=== PATIENT | female | born 1950 | race Caucasian/White ===

== ENCOUNTER 2017-06-24 13:59 | Emergency (ER) | payer BC, OTHER ==
[~2017-06-24] VITALS: Ht 160 cm; Wt 86.2 kg
[2017-06-24 14:00] VITALS: BP_SYST 153
[2017-06-24 16:34] VITALS: BP_SYST 147
== END 2017-06-24 16:34 | disposition home or self-care (01) ==
LOC: SED 13:59
DX: S00.03XA Contusion of scalp, initial encounter (principal); M54.2 Cervicalgia; M54.9 Dorsalgia, unspecified; I10 Essential (primary) hypertension; W01.0XXA Fall on same level from slipping, tripping and stumbling without subsequent striking against object, initial encounter; Y93.89 Activity, other specified; Y92.89 Other specified places as the place of occurrence of the external cause; Y99.8 Other external cause status
CPT/HCPCS: 70450-TC; 72125-TC; 99284

== ENCOUNTER 2019-08-13 18:07 | Emergency (ER) | payer OTHER ==
[~2019-08-13] VITALS: Ht 152.4 cm; Wt 61.2 kg
[2019-08-13 18:13] VITALS: BP_SYST 208
--- NOTE | 2019-08-13 18:54 | NUR ---
Note baltazar in [facility] - 08/13/19 at 1855 by [email or web address] Patient to [facility] 02 to [place] for evaluation. Side rails up.
[2019-08-13] MEDS ORDERED: KETOROLAC TROMETHAMINE 30 MG VIAL IVP ONE (19:00)
--- NOTE | 2019-08-13 19:00 | NUR ---
Patient to ER bed 02 to gown for evaluation. Side rails up.
[2019-08-13 19:04] LABS: BILIRUBIN,URINE NEGATIVE (NEGATIVE); BLOOD, URINE 2+ (NEGATIVE); CLARITY/URINE CLEAR (CLEAR); COLOR,URINE YELLOW (YELLOW); GLUCOSE,URINE NEGATIVE (NEGATIVE); KETONES,URINE NEGATIVE (NEGATIVE); LEUKOCYTE ESTERASE ,URINE NEGATIVE (NEGATIVE); NITRITE, URINE NEGATIVE (NEGATIVE); PROTEIN URINE 1+ (NEGATIVE); UROBILINOGEN,URINE 0.2 (0.2-1.0)
[2019-08-13 19:17] LABS: BASOPHILS # (AUTO) 0.1 K/uL (0.0-0.2); BASOPHILS % (AUTO) 0.5 % (0.0-2.0); EOSINOPHILS # (AUTO) 0.3 K/uL (0.0-0.4); EOSINOPHILS % (AUTO) 2.5 % (0.0-4.0); HEMATOCRIT 40.9 % (36-48); HEMOGLOBIN 13.5 g/dL (12.0-16.0); LYMPHOCYTES # (AUTO) 1.9 K/uL (1.0-5.5); MEAN CORPUSCULAR HEMOGLOBIN 28 pg (27-31); MEAN CORPUSCULAR HGB CONC 33 % (32-36); MEAN CORPUSCULAR VOLUME 86 fL (79.0-98.0); MONOCYTES # (AUTO) 0.6 K/uL (0.0-1.0); MONOCYTES % (AUTO) 5.8 % (1.7-9.3); NEUTROPHILS # (AUTO) 7.6 K/uL (1.8-7.7); NEUTROPHILS % (AUTO) 73.2 % (40.0-70.0); PLATELET COUNT (AUTO) 304 K/uL (130-430); RED BLOOD CELL COUNT(AUTO) 4.76 MIL/uL (4.2-6.2); RED CELL DISTRIBUTION WIDTH 13.4 % (9.0-15.0); WHITE BLOOD COUNT (AUTO) 10.4 K/uL (4.8-10.8)
[2019-08-13 19:30] LABS: CALCIUM 9.2 mg/dL (8.4-11.0); CREATININE 0.63 mg/dL (0.55-1.30)
[2019-08-13 19:30] LABS: BACTERIA,URINE FEW /HPF (None Seen); HYALINE CASTS, URINE 0-10 /LPF (None Seen); WBC,URINE 0-3 /HPF (0-3)
--- NOTE | 2019-08-13 19:30 | NUR ---
Pt is a 68 y/o female who comes into the ER c/o lower ab pain and mid back pain since this afternoon. She rates the pain as 8/10 when she got here but right now she rates her pain 3/10. Pt has a hx of chronic low back pain from deterioated disc and high cholesterol. Pt states that her last BM was this morning. Pt states she takes norco for her low back pain. Denies any allergies to meds. Pt denies fever, chills, diarrhea, or any other complaints. Will cont to monitor.
[2019-08-13 19:34] LABS: TOTAL BILIRUBIN 0.3 mg/dL (0.0-1.0)
--- NOTE | 2019-08-13 19:42 | NUR ---
ER Dr. GUERRA at bedside examining patient.
--- NOTE | 2019-08-13 20:30 | NUR ---
Pt in bed resting comfortably, no signs of acute distress or discomfort noted. Will cont to monitor.
[2019-08-13] MEDS ORDERED: PANTOPRAZOLE SODIUM 40 MG/VIAL (PROTONIX) IVP ONE (21:00)
--- NOTE | 2019-08-13 21:17 | NUR ---
ER Dr. Rivera at bedside speaking with patient.
[2019-08-13 21:45] VITALS: BP_SYST 156
--- NOTE | 2019-08-13 21:45 | NUR ---
Patient given written and verbal discharge instructions and verbalizes understanding. ER MD Dr. Rivera discussed with patient the results and treatment provided. Patient in stable condition. ID arm band removed. IV catheter removed intact and dressing applied, no active bleeding. Rx of protonix given. Patient educated on pain management and to follow up with PMD. Pain Scale 0/10. Opportunity for questions provided and answered. Medication side effect fact sheet provided.
== END 2019-08-13 21:45 | disposition home or self-care (01) ==
LOC: SED 18:07
DX: R10.33 Periumbilical pain (principal); M54.6 Pain in thoracic spine; I10 Essential (primary) hypertension; E78.00 Pure hypercholesterolemia, unspecified
CPT/HCPCS: 36415; 74176; 80053; 81000; 83690; 85025; 96374; 96375; 99284; C9113; J1885